=== PATIENT | female | born 1960 | race Caucasian/White ===

== ENCOUNTER 2020-02-03 13:47 | Outpatient (CLI) | payer OTHER ==
--- NOTE | 2020-02-03 14:45 | MMO ---
Bilateral MAMMO Bilat Screen [facility]. CLINICAL HISTORY: Patient is 59 years old and is seen for screening. The patient has the following family history of breast cancer: mother, at age 48. The patient has no personal history of cancer. The patient has a history of right Excisional Biopsy in 1996 - Benign. VIEWS: The views performed were: bilateral craniocaudal with tomosynthesis and bilateral mediolateral oblique with tomosynthesis. FILMS COMPARED: The present examination has been compared to prior imaging studies performed at [facility] on 02/05/2005, 11/20/2006, 10/20/2007 and 12/03/2011. This study has been interpreted with the assistance of computer-aided detection. MAMMOGRAM FINDINGS: The breasts are heterogeneously dense, which could obscure a lesion on mammography. Benign calcifications are noted bilaterally. There are no suspicious masses, suspicious calcifications, or new areas of architectural distortion. IMPRESSION: THERE IS NO MAMMOGRAPHIC EVIDENCE OF MALIGNANCY. A ROUTINE FOLLOW-UP MAMMOGRAM IN 1 YEAR IS RECOMMENDED. THE RESULTS OF THIS EXAM WERE SENT TO THE PATIENT. ACR BI-RADS Category 2 - Benign finding MAMMOGRAPHY NOTE: 1. A negative mammogram report should not delay a biopsy if a dominant of clinically suspicious mass is present. 2. Approximately 10% to 15% of breast cancers are not detected by mammography. 3. Adenosis and dense breasts may obscure an underlying neoplasm. Reported by: AJITH KENYON MD Electonically Signed: [id number]
== END 2020-02-03 13:48 | disposition home or self-care (01) ==
LOC: BICMAMMO 13:47
PROVIDERS: ATTEND Family Medicine
DX: Z12.31 Encounter for screening mammogram for malignant neoplasm of breast (principal); Z80.3 Family history of malignant neoplasm of breast; Z91.89 Other specified personal risk factors, not elsewhere classified
CPT/HCPCS: 77063; 77067

== ENCOUNTER 2020-06-21 13:51 | Outpatient (CLI) | payer OTHER | END 2020-06-21 13:52 | disposition home or self-care (01) | LOC: BICMRI 13:51 | PROVIDERS: ATTEND Podiatrist | DX: M76.821 Posterior tibial tendinitis, right leg (principal); M67.471 Ganglion, right ankle and foot; M25.571 Pain in right ankle and joints of right foot; G89.29 Other chronic pain; M65.871 Other synovitis and tenosynovitis, right ankle and foot; M89.9 Disorder of bone, unspecified ==

== ENCOUNTER 2022-06-11 14:53 | Outpatient (CLI) | payer OTHER | END 2022-06-11 14:54 | disposition home or self-care (01) | LOC: BICMAMMO 14:53 | PROVIDERS: ATTEND Family Medicine | DX: N95.1 Menopausal and female climacteric states (principal) | CPT/HCPCS: 77080 ==